=== PATIENT | female | born 1955 | race Caucasian/White ===

== ENCOUNTER 2024-05-29 02:05 | Outpatient (CLI) | payer MEDICARE, SELFPAY ==
--- NOTE | 2024-05-29 06:45 | DI.RAD_ITS ---
Exam(s) XR FOOT RT COMPLETE EXAM: XR FOOT RT COMPLETE CLINICAL HISTORY: Right foot pain,m79.671. TECHNIQUE: 2D digital imaging was performed of the right foot. Three images were obtained. AP, obl ique and lateral views were obtained. COMPARISON: There are no priors for comparison. FINDINGS: BONES: There is an oblique lucency at the medial aspect of the distal phalanx of the 5th toe seen on both the AP and oblique views. No bony destructive lesion is seen. JOINTS: No dislocation present. The joint spaces are well maintained. SOFT TISSUE: Normal. IMPRESSION: Oblique lucency at the medial aspect of the base of the distal phalanx of the right little toe. This may represent a fracture. Please correlate clinically. A small erosion should also be considered. DATA REPOSITORY: RADIATION DOSE DELIVERED:
--- NOTE | 2024-05-29 06:45 | DI.RAD_ITS ---
Exam(s) XR FOOT LT COMPLETE EXAM: XR FOOT LT COMPLETE CLINICAL HISTORY: Left foot pain,M79.672. TECHNIQUE: 2D digital imaging was performed of the left foot. Three images were obtained. AP, obli que and lateral views were obtained. COMPARISON: No exams were available for comparison FINDINGS: BONES: No acute fracture is present. No bony destructive lesion is seen. JOINTS: No dislocation present. The joint spaces are well maintained. SOFT TISSUE: Normal. IMPRESSION: No acute abnormality. DATA REPOSITORY: RADIATION DOSE DELIVERED:
== END 2024-05-29 02:25 ==
PROVIDERS: PCP Nurse Practitioner Family; Visit Provider Podiatrist
DX: M79.672 Pain in left foot (principal); M79.671 Pain in right foot
CPT/HCPCS: 73630

== ENCOUNTER 2024-06-25 01:33 | Outpatient (CLI) | payer MEDICARE, SELFPAY ==
--- NOTE | 2024-06-25 06:45 | DI.MRI_ITS ---
Exam(s) MR LOWER EXTREMITY RT WO/W EXAM: MR LOWER EXTREMITY RT WO/W CLINICAL HISTORY: Second and third interspace pain,NEUROMA,BURSITIS,G57.62,M77.52 TECHNIQUE: Multiplanar multisequence MRI was performed without intravenous contrast. Multiplanar multisequence MRI was performed of the distal half of the right foot Intravenous contrast injected: 11 mL Dotarem COMPARISON: CR XR FOOT RT COMPLETE from 05/29/2024 CR XR FOOT LT COMPLETE from 05/29/2024 MR MR LOWER EXTREMITY LT WO/W from 06/25/2024 FINDINGS: SKIN: No evidence of ulcer nor subcutaneous tract. BONES/JOINTS: There is bone edema in the base of the distal phalanx the 5th toe, this corresponding t o area of concern on recent plain radiographs. Is difficult to identify an actual fracture line but there is bone edema at this level and no other significant bone edema in the 5th toe nor in the other toe phalanges nor within the metatarsals. There is a moderate size joint effusion in the great toe metatarsophalangeal joint. There are minimal degenerative changes in this articulation. Also no signa l abnormality in the subjacent to sesamoid bones. Metatarsals and metatarsal heads appear unremarkabl e. There is no evidence of para-articular ganglion. LISFRANC JOINT: Main Lisfranc joint and tendon appear intact.. Tarsometatarsal joints all appear inta ct/unremarkable. LIGAMENTS: No obvious tears evident. MUSCULOTENDINOUS STRUCTURES: No tendon tears nor obvious tenosynovitis evident. SOFT TISSUES: Prominent subcutaneous soft tissue edema over the dorsal aspect of the foot, most promi nent laterally. INTERMETATARSAL SPACES: No evidence of intermetatarsal/Stroud's neuroma. There is a minimal amount of fluid between the heads of the 3rd and 4th metatarsals, possibly representing mild bursitis. POSTCONTRAST IMAGES: Mild intraosseous enhancement in the distal phalanx of the 5th toe. No other int raosseous enhancement nor abnormal focal soft tissue enhancement. IMPRESSION: 1. There is some bone edema evident in the distal phalanx of the 5th toe, this corresponding to area of concern on recent plain films of the right foot. It is difficult to identify for certain an actual T1 hypointense fracture line at this level. 2. There is significant subcutaneous soft tissue edema over the dorsal lateral aspect of the foot. Co rrelation with with any direct trauma over this area recommended. There are no metatarsal fractures. 3. There is a moderate size joint effusion in the great toe metatarsophalangeal joint with very minim al degenerative changes in this articulation and no erosions. Also no abnormal signal in the 2 sesamo id bones subjacent to the great toe metatarsal head. 4. No evidence of Stroud's interdigital neuroma, as per request. However, there is small amount of fl uid signal in the 3rd intermetatarsal space which may indicate mild interdigital bursitis at this lev el. 5. no obvious tendon tears nor tenosynovitis. DATA REPOSITORY:
--- NOTE | 2024-06-25 06:45 | DI.MRI_ITS ---
Exam(s) MR LOWER EXTREMITY LT WO/W EXAM: MR LOWER EXTREMITY LT WO/W CLINICAL HISTORY: Second and third interspace pain,NEUROMA, BURSITIS,M77.51,G57.61 TECHNIQUE: Multiplanar multisequence MRI was performed without intravenous contrast. COMPARISON: CR XR FOOT LT COMPLETE from 05/29/2024 MR MR LOWER EXTREMITY RT WO/W from 06/25/2024 FINDINGS: SKIN: No evidence of ulcer nor subcutaneous tract. No evidence of foreign body. BONES/JOINTS: No evidence of fracture nor bone contusion. No intraosseous signal to suggest osteomye litis. There is a mild-moderate size joint effusion the great toe metatarsophalangeal joint small ef fusions are also evident in the other metatarsophalangeal joints. No evidence of para-articular gang portia on cysts. Minimal any significant degenerative changes in these articulations and there are no o sseous lesions nor erosions. No obvious collateral ligament tears. LISFRANC JOINT: Main Lisfranc joint as well as other tarsometatarsal joints appear intact. Minimal i f any significant degenerative changes. LIGAMENTS: No obvious tears evident. MUSCULOTENDINOUS STRUCTURES: No tendon tears nor tenosynovitis evident. SOFT TISSUES: Unremarkable. INTERMETATARSAL SPACES: There is no evidence of intermetatarsal/Stroud's neuroma. POSTCONTRAST IMAGES: There is no abnormal intraosseous nor focal soft tissue enhancement. IMPRESSION: 1. No evidence of fracture, bone contusion, nor erosions. 2. No evidence of Stroud's interdigital neuroma. 3. There are small joint effusions in all of the metatarsophalangeal joints. There are minimal if an y significant degenerative changes in these joints and no evidence of Freiberg's infraction. No evid ence of osteomyelitis. DATA REPOSITORY:
[2024-06-25] MEDS: Normal Saline Flush 10 ML SYR IVP (12:44)
[2024-06-25] MEDS: Gadoterate meglumine 20 ML SYRINGE 11 ML IVP (12:45)
--- NOTE | 2024-06-25 17:02 | DI.VRAD_ITS ---
PROCEDURE INFORMATION: Exam: MR Right Lower Extremity Other Than Joint Without and With Contrast; Foot Exam date and time: 06/25/2024 12:26 PM Age: 68 years old Clinical indication: Other: Rule out mortons neuroma TECHNIQUE: Imaging protocol: Magnetic resonance imaging of the right lower extremity without and with contrast. Exam focused on the foot. Contrast material: DOTAREM; Contrast volume: 11 ml; Contrast route: INTRAVENOUS (IV); COMPARISON: CR XR FOOT RT COMPLETE 05/29/2024 9:22 AM FINDINGS: Bones/joints: Unremarkable. No bone abnormalities. Articular cartilage is normal. No joint effusion. LIGAMENTS: Lisfranc ligament: Unremarkable. No evidence of tear. TENDONS: Flexor tendons of foot: Unremarkable. No evidence of tear. Tibialis posterior tendon: Unremarkable as visualized. Peroneal tendons: Unremarkable as visualized. Extensor tendons of foot: Unremarkable. No evidence of tear. Tibialis anterior tendon: Unremarkable as visualized. Tarsal canal (Sinus tarsi): Unremarkable. Tarsal tunnel: Unremarkable. Soft tissues: Generalized subcutaneous edema along the dorsal lateral forefoot. Plantar fascia: Unremarkable as visualized. IMPRESSION: No evidence of a mass or cyst.Generalized subcutaneous edema along the dorsal lateral forefoot. Dictated and Authenticated by: Lauren Miller MD. Orderin Chhaya Hull MD
== END 2024-06-25 01:53 ==
LOC: DI 01:33
PROVIDERS: PCP Nurse Practitioner Family; Visit Provider Podiatrist
DX: G57.61 Lesion of plantar nerve, right lower limb (principal); M77.51 Other enthesopathy of right foot and ankle; G57.62 Lesion of plantar nerve, left lower limb; M77.52 Other enthesopathy of left foot and ankle
CPT/HCPCS: 73720

== ENCOUNTER → 2024-06-27 09:20 | Outpatient (BNVA) | payer MEDICARE, SELFPAY | PROVIDERS: PCP Nurse Practitioner Family; Referring Provider Nurse Practitioner Family; Visit Provider Podiatrist | DX: G57.62 Lesion of plantar nerve, left lower limb (principal); R25.2 Cramp and spasm; M77.52 Other enthesopathy of left foot and ankle; G57.61 Lesion of plantar nerve, right lower limb; M77.51 Other enthesopathy of right foot and ankle; G62.9 Polyneuropathy, unspecified | CPT/HCPCS: 99214 ==